=== PATIENT | male | born 1985 | race Caucasian/White ===

== ENCOUNTER 2021-08-15 03:54 | Inpatient (IN) | payer MEDICAID ==
[~2021-08-15] VITALS: Ht 170.2 cm; Wt 70.6 kg
[2021-08-15] MEDS ORDERED: LORAZEPAM 2MG/ML CPJ IV ONE (04:30)
[2021-08-15 04:49] LABS: BASOPHILS % 0.6 % (0.0-2.0); EOSINOPHILS % 0.6 % (0.0-5.0); HEMATOCRIT. 45.3 % (42.0-52.0); HEMOGLOBIN. 15.2 g/dL (14.0-18.0); LYMPHOCYTES % 16.4 % (20.0-50.0); MEAN CORPUSCULAR VOLUME 92.5 fL (80.0-94.0); MEAN PLATELET VOLUME 9.8 fl (7.4-10.4); MONOCYTES % 8.6 % (2.0-8.0); NEUTROPHILS % 73.8 % (40.0-76.0); PLATELET 183 x1000/uL (130-400); RED CELL DISTRIBUTION WIDTH 13.3 % (11.6-14.6)
[2021-08-15 04:53] LABS: CHLORIDE 109 mEq/L (98-107)
[2021-08-15 05:00] LABS: *AMPHETAMINES SCREEN URINE PRESUMTIVE POSITIVE (NEGATIVE); *BARBITURATES SCREEN URINE NEGATIVE (NEGATIVE); *BENZODIAZEPINES SCREEN URINE PRESUMTIVE POSITIVE (NEGATIVE); *COCAINE SCREEN URINE PRESUMTIVE POSITIVE (NEGATIVE); CANNABINOID URINE SCREEN NEGATIVE (NEGATIVE); METHADONE URINE SCREEN NEGATIVE (NEGATIVE); OPIATES URINE SCREEN NEGATIVE (NEGATIVE); PHENCYCLIDINE URINE SCREEN PRESUMTIVE POSITIVE (NEGATIVE)
[2021-08-15 05:00] LABS: ETHANOL BLOOD < 10 mg/dL
[2021-08-15] MEDS ORDERED: LORAZEPAM 2MG/ML CPJ IV PRN (10:15)
[2021-08-15] MEDS ORDERED: ACETAMINOPHEN 325MG TABLET PO PRN (10:15)
[2021-08-15] MEDS ORDERED: ONDANSETRON HCL 4MG/2ML INJ IV PRN (10:15)
[2021-08-15 10:18] VITALS: BP 116/65
[2021-08-15 12:00] VITALS: BP 119/81
[2021-08-15 19:15] VITALS: BP 122/75
[2021-08-15 20:00] VITALS: BP 122/82
[2021-08-15] MEDS: LEVETIRACETAM 500MG TABLET PO SCH (22:27)
[2021-08-16] VITALS: BP 131/83
[2021-08-16 04:00] VITALS: BP 128/80
[2021-08-16 07:59] VITALS: BP 115/82
[2021-08-16] MEDS: LEVETIRACETAM 500MG TABLET PO SCH (08:24)
[2021-08-16 11:54] VITALS: BP 157/100
[2021-08-16 12:45] VITALS: BP 117/83
== END 2021-08-16 14:21 | disposition home or self-care (01) | DRG 53 ==
LOC: ER 04:25 → 6EST 05:43 → ENRESERV 07:44
PROVIDERS: ADMIT Internal Medicine; ATTEND Internal Medicine
DX: G40.909 Epilepsy, unspecified, not intractable, without status epilepticus (principal); E87.8 Other disorders of electrolyte and fluid balance, not elsewhere classified; F13.939 Sedative, hypnotic or anxiolytic use, unspecified with withdrawal, unspecified; F11.90 Opioid use, unspecified, uncomplicated; F15.90 Other stimulant use, unspecified, uncomplicated; F12.10 Cannabis abuse, uncomplicated; F19.10 Other psychoactive substance abuse, uncomplicated; Z95.0 Presence of cardiac pacemaker; Z86.79 Personal history of other diseases of the circulatory system; Z71.51 Drug abuse counseling and surveillance of drug abuser
CPT/HCPCS: 36415; 80053; 80305; 80320; 85025; 93005; 99291; J2060; G0480